=== PATIENT | male | born 1985 | race Caucasian/White ===

== ENCOUNTER 2018-05-10 21:11 | Emergency (ER) | payer OTHER ==
[2018-05-10 21:29] VITALS: BP 113/67
[2018-05-10] MEDS ORDERED: Tetan/Diph/Pertus SYR(Tdap)* 0.5 ML SYR(BOOSTRIX) use SYR IM ONE (21:48)
[2018-05-10] MEDS ORDERED: Lidocaine 2% PF * 5 ML VIAL INJ ONE (21:49)
[2018-05-10] MEDS ORDERED: Bupivacaine 0.25% SDV* 30 ML INJ ONE (21:50)
[2018-05-10] MEDS ORDERED: Bupivacaine 0.25% SDV PF* 10 ML VIAL INJ ONE (21:58)
[2018-05-11] MEDS ORDERED: Ibuprofen TAB* 600 MG PO ONE (00:06)
[2018-05-11] MEDS ORDERED: HYDROcodone/ACETAMIN 5-325 MG* 1 TAB PO ONE (00:06)
--- NOTE | 2018-05-11 00:06 | UC ---
Hand/Wrist HPI - HPI Summary HPI Summary: Patient is a 33-year-old male that presents here soon after lacerating his left index middle and ring finger with a chisel. This is right handed. His tetanus is not up-to-date. Occurred while he was woodworking. The tips of his left index and middle finger are numb. - History Of Current Complaint Chief Complaint: UCLaceration Stated Complaint: FINGERS LACERATIONS Time Seen by Provider: 05/10/18 21:37 Hx Obtained From: Patient Onset/Duration: Sudden Onset Severity Initially: Severe Severity Currently: Severe Pain Intensity: 8 Pain Scale Used: 0-10 Numeric Character Of Pain: Sharp Aggravating Factor(s): Movement Alleviating Factor(s): Compression Associated Signs And Symptoms: Positive: Numbness/Tingling Related History: Dominant Hand Right Hands: 1 - lac #1 2 - lac # 2 3 - lac #3 4 - lac #4 5 - numb 6 - numb - Allergies/Home Medications Allergies/Adverse Reactions: Allergies Allergy/AdvReac Type Severity Reaction Status Date / Time No Known Allergies Allergy Verified 05/10/18 21:29 Home Medications: Home Medications Bupropion XL* [Wellbutrin XL *] 300 mg PO DAILY 05/10/18 [History Confirmed ] Fluoxetine HCl [Prozac] 20 mg PO DAILY WITH MEAL 05/10/18 [History Confirmed ] PMH/Surg Hx/FS Hx/Imm Hx Previously Healthy: Yes - Surgical History Surgical History: None Surgery Procedure, Year, and Place: denies - Family History Known Family History: Positive: Hypertension - Social History Alcohol Use: Daily Substance Use Type: None Substance Use Comment - Amount & Last Used: coratum Smoking Status (MU): Heavy Every Day Tobacco Smoker Review of Systems Constitutional: Negative Skin: Negative Eyes: Negative ENT: Negative Respiratory: Negative Cardiovascular: Negative Gastrointestinal: Negative Genitourinary: Negative Motor: Negative Neurovascular: Negative Musculoskeletal: Negative Neurological: Negative Psychological: Negative Is Patient Immunocompromised?: No All Other Systems Reviewed And Are Negative: Yes Physical Exam Triage Information Reviewed: Yes Appearance: Well-Appearing, No Pain Distress, Well-Nourished Vital Signs: Initial Vital Signs Temp 97.9 F 05/10/18 21:24 Pulse 68 05/10/18 21:24 Resp 20 05/10/18 21:24 BP 113/67 05/10/18 21:24 Pulse Ox 100 05/10/18 21:24 Eyes: Positive: Conjunctiva Clear ENT: Positive: Hearing grossly normal. Negative: Pharyngeal erythema, Nasal congestion, Nasal drainage, Trismus Neck: Positive: Supple, Nontender Respiratory: Positive: Lungs clear, Normal breath sounds, No respiratory distress Cardiovascular: Positive: RRR, No Murmur Musculoskeletal: Positive: ROM Intact Neurological: Positive: Alert Psychological Exam: Normal Skin Exam: Other - see image Procedures - Laceration/Wound Repair 1 Location: Other - right index-see image Description: Linear Anesthesia: Digital, Lido, Marcaine Length, Depth and Shape: 1 cm long 2 mm wide 3 mm deep, linear. no tendon injury noted Betadine Prep?: Yes Irrigated w/ Saline (ccs): 60 Laceration/Wound Explored: clean Closure: Single Layer Suture Type: Nylon - 5-0 Number of Sutures: 3 Layer Closure?: No Sterile Dressing Applied?: Yes 2 Location: Other - left index finger Description: Linear Anesthesia: Digital Length, Depth and Shape: linear, 0.7 mm long, 2mm wide,3 mm deep Betadine Prep?: Yes Irrigated w/ Saline (ccs): 60 Laceration/Wound Explored: clean Closure: Single Layer Suture Type: Nylon - 5-0 Number of Sutures: 2 Layer Closure?: No Sterile Dressing Applied?: Yes 3 Location: Other - left middle finger Description: Linear Anesthesia: Digital, 2.0%, Lido, Marcaine Length, Depth and Shape: linear 2cm long, 3 mm wide 4 mm deep Betadine Prep?: Yes Irrigated w/ Saline (ccs): 60 Laceration/Wound Explored: clean Suture Type: Nylon - 5-0 Number of Sutures: 9 Layer Closure?: No Sterile Dressing Applied?: Yes 4 Location: Other - left ring finger Description: Linear Anesthesia: Digital, 2.0%, Lido, Marcaine Betadine Prep?: Yes Irrigated w/ Saline (ccs): 60 Laceration/Wound Explored: clean Closure: Single Layer Suture Type: Nylon - 5-0 Number of Sutures: 4 Layer Closure?: No Sterile Dressing Applied?: Yes Diagnostics - Radiology No standard instances Xray Interpretation: No Acute Changes Radiology Interpretation Completed By: ED Physician Hand/Wrist Course/Dx - Differential Dx/Diagnosis Provider Diagnoses: laceration repair. left index finger x 2. left middle finger. left ring finger. suspected digital nerve laceration left middle and left index finger Discharge - Sign-Out/Discharge Documenting (check all that apply): Patient Departure All imaging exams completed and their final reports reviewed: No - Discharge Plan Condition: Improved Disposition: HOME Prescriptions: Cephalexin CAP* [Keflex CAP*] 500 mg PO TID #15 cap Patient Education Materials: Finger Laceration (ED) Referrals: Clint Beverly MD [Medical Doctor] - 3 Days Additional Instructions: elevate elevate elevate leave dressings on for 24-48 hours then gently clean twice daily with soap and water dry apply thin film of ointment (I like aquaphor healing ointment) apply dressing norco one every 4 hours if needed for severe pain (3 dispensed) Opioid-containing medications can cause drowsiness and sedation. You t should not drive or operate machinery or similar activities while taking this medication. Opioids can also cause a positive drug screen, and can be habit- forming. You should follow the instructions exactly and not take any extra medication. Opioid medications should be stored in a secure manner to avoid diversion or theft. You should not drink alcohol while taking these medications advil or aleve I am concerned that you lacerated a digital nerve (left middle finger) and perhaps left index finger I suggest you see a hand specialist keflex 3x day (#15) sutures out in 7-10 days recheck jorge for concerns of infection - Billing Disposition and Condition Condition: IMPROVED Disposition: Home
[2018-05-11] MEDS ORDERED: Cephalexin CAP* 500 MG PO ONE (00:07)
--- NOTE | 2018-05-11 07:56 | RAD ---
HISTORY: injury, laceration of second through fourth fingers COMPARISONS: None VIEWS: 4 , Frontal, lateral, and oblique views of the left hand FINDINGS: BONE DENSITY: Normal. BONES: There is no displaced fracture. JOINTS: There is no arthropathy. ALIGNMENT: There is no dislocation. SOFT TISSUES: There is soft tissue irregularity consistent with the history of laceration. OTHER FINDINGS: None. IMPRESSION: NO ACUTE OSSEOUS INJURY. IF SYMPTOMS PERSIST, RECOMMEND REPEAT IMAGING. R0
--- NOTE | 2018-05-11 08:36 | UC ---
- Progress Note Progress Note: FInal xray report: no fracture of the left hand Discharge - Sign-Out/Discharge Documenting (check all that apply): Post-Discharge Follow Up All imaging exams completed and their final reports reviewed: Yes - Discharge Plan Condition: Improved Disposition: HOME Prescriptions: Cephalexin CAP* [Keflex CAP*] 500 mg PO TID #15 cap Patient Education Materials: Finger Laceration (ED) Referrals: Clint Beverly MD [Medical Doctor] - 3 Days Additional Instructions: elevate elevate elevate leave dressings on for 24-48 hours then gently clean twice daily with soap and water dry apply thin film of ointment (I like aquaphor healing ointment) apply dressing norco one every 4 hours if needed for severe pain (3 dispensed) Opioid-containing medications can cause drowsiness and sedation. You t should not drive or operate machinery or similar activities while taking this medication. Opioids can also cause a positive drug screen, and can be habit- forming. You should follow the instructions exactly and not take any extra medication. Opioid medications should be stored in a secure manner to avoid diversion or theft. You should not drink alcohol while taking these medications advil or aleve I am concerned that you lacerated a digital nerve (left middle finger) and perhaps left index finger I suggest you see a hand specialist keflex 3x day (#15) sutures out in 7-10 days recheck jorge for concerns of infection - Billing Disposition and Condition Condition: IMPROVED Disposition: Home
== END 2018-05-11 00:30 | disposition home or self-care (01) ==
LOC: UCEAST 21:11
DX: S61.211A Laceration without foreign body of left index finger without damage to nail, initial encounter (principal); S61.213A Laceration without foreign body of left middle finger without damage to nail, initial encounter; S61.215A Laceration without foreign body of left ring finger without damage to nail, initial encounter; W27.0XXA Contact with workbench tool, initial encounter; Y93.89 Activity, other specified; Y92.9 Unspecified place or not applicable; F17.210 Nicotine dependence, cigarettes, uncomplicated
CPT/HCPCS: 12002; 90471; 90715; 99203; A9270-GY; G0463; J3490

== ENCOUNTER 2018-05-20 11:24 | Day surgery (SDC) | payer OTHER ==
[~2018-05-20 11:24] MED LIST: Buffered Lidocaine 0.9% SYRIN* 5 ML/SYR SYRINGE INTRADERM ONE; Dexamethasone TAB* 4 MG PO ONE; DiMENhydriNATE IV* 50 MG/ML VIAL IV PUSH PRN; Famotidine IV* 10 MG/ML 2 ML (20 mg) IV ONE; Morphine INJ* 2 MG/ML 1 ML SYRINGE (TWO MG - NEW SYRINGE VERSION) IV PRN; Naloxone* 0.4 MG/ML 1 ML VIAL IV PRN; Ondansetron INJ* 2 MG/ML VIAL ONE; PROCHLORPERAZINE INJ 5 MG/ML 2 ML VIAL IV PRN; Scopolamine 1.5 mg* PATCH TRANSDERM PRN
[2018-05-20] MEDS ORDERED: Famotidine IV* 10 MG/ML 2 ML (20 mg) ONE (11:37)
[2018-05-20] MEDS ORDERED: Dexamethasone TAB* 4 MG ONE (11:38)
[2018-05-20] MEDS ORDERED: Ondansetron ODT TAB* 4 MG ONE (11:38)
[2018-05-20] MEDS ORDERED: Buffered Lidocaine 0.9% SYRIN* 5 ML/SYR SYRINGE ONE (11:38)
[2018-05-20] MEDS ORDERED: ceFAZolin 2 GM in NS PREMIX(*) 2 GM/100 ML BAG IVPB ONE (11:39)
[2018-05-20] MEDS ORDERED: fentaNYL* 50 MCG/ML 2 ML VIAL (100 MCG VIAL) ONE ×3 (12:02→16:33)
[2018-05-20] MEDS ORDERED: KETAMINE HCL* 50 MG/ML 10 ML VIAL ONE (12:02)
[2018-05-20] MEDS ORDERED: Midazolam* 1 MG/ML 5 ML VIAL (5 MG) ONE (12:02)
[2018-05-20] MEDS ORDERED: Bupivacaine 0.25% SDV* 30 ML ONE (13:09)
[2018-05-20] MEDS ORDERED: Ketorolac INJ* 30 MG/ML 1 ML VIAL ONE (15:19)
[2018-05-20] MEDS ORDERED: Lidocaine 2% PF * 5 ML VIAL ONE (15:19)
[2018-05-20] MEDS ORDERED: Propofol* 10 MG/ML 20 ML BTL IV PUSH ONE (15:19)
[2018-05-20] MEDS ORDERED: oxyCODONE/Acetamin 5/325 MG* TAB ONE (16:29)
[2018-05-20] MEDS: oxyCODONE/Acetamin 5/325 MG* TAB PO PRN ×2 (16:31→16:32)
[2018-05-20] MEDS: fentaNYL* 50 MCG/ML 2 ML VIAL (100 MCG VIAL) IV PRN ×3 (16:35→16:48)
[2018-05-20 16:50] VITALS: BP 112/65
--- NOTE | 2018-05-20 23:20 | OP ---
DATE OF OPERATION: 05/20/18 - [facility] [place] DATE OF : 85 SURGEON: Sheldon Lopez MD MONOTYPE SETTER: VANGIE Logan. An client account assistant was needed for the entirety of the procedure to aid in positioning of the arm and retraction. ANESTHESIOLOGIST: Dr. Palacio. ANESTHESIA: General. PRE-OP DIAGNOSES: 1. Left index finger ulnar digital nerve laceration near the DIP joint. 2. Left middle finger ulnar digital nerve laceration over the middle phalanx. POST-OP DIAGNOSES: 1. Left index finger ulnar digital nerve laceration just at the trifurcation. 2. Left index finger zone 1 partial flexor tendon laceration involving about 60 % of the tendon including the entirety of the ulnar slip of the FDP just proximal to its insertion. 3. Left middle finger ulnar digital nerve laceration. 4. Left middle finger zone 1 partial FDP tendon laceration of about 30% to 40%. OPERATIVE PROCEDURE: 1. Exploration of penetrating wounds, left index finger and middle fingers. Repair of left index finger, ulnar digital nerve with direct suturing and then AxoGuard nerve wrapping. 2. Repair of left index finger flexor digitorum profundus tendon zone 1 partial laceration. 3. Repair of left middle finger ulnar digital nerve with AxoGuard conduit. 4. Debridement of partial zone 1 left middle finger FDP tendon laceration. INDICATIONS: Bairon had a chisel wound to the left index, middle and to a lesser extent the ring fingers. The ring finger has been improving and healing nicely and it was left with just a touch of diminished sensation on the fingertip that has almost entirely improved. He is frankly numb on the ulnar aspect of the left index finger and middle fingertips. The fingers have been loosening up more recently. We talked about risks and benefits. He wanted to proceed with surgery. He understands the risks that the nerves will not heal correctly despite doing surgery as well as the risk of stiffness in the fingers. ESTIMATED BLOOD LOSS: 2 mL. COMPLICATIONS: None. FINDINGS: See above and below. DESCRIPTION OF PROCEDURE: Bairon was seen in the preoperative holding area. The correct side, site and procedure were identified. He came back to the operating room where the arm was prepped and draped in the usual fashion. A time-out was performed. The arm was exsanguinated with the Esmarch and the tourniquet inflated to 250 mmHg. The arm was positioned on the hand table with the use of a lead hand. I then extended the traumatic wound on the left middle finger proximally and distally in mid axial and then Pantera type fashion. Full thickness flap was raised off the flexor tendon sheath and the ulnar digital nerve was explored. The laceration was identified. It was 95% lacerated. There was a 30% to 40% partial laceration of the ulnar side of the FDP tendon. I then debrided this partial tendon laceration back with the [place] blade until there was a nice smooth bevelled edge. I then placed a background underneath the digital nerve and a sterile tongue depressor was placed as a backdrop. I debrided a millimeter of nerve on either side with the 11 blade. I then brought in AxoGuard 2-mm conduit and sutured it with a horizontal mattress suture in a typical fashion brining the proximal end of the nerve into the conduit first. I then trimmed my conduit to size and placed a second 9-0 nylon suture brining the distal end of the nerve into the conduit leaving a gap of about 1 to 2 mm between the ends of the nerve. At this point, everything was looking was good. I went ahead and removed the background. Everything was irrigated out. The skin was closed with 4-0 nylon suture. I then connected the in and out wounds on the left index finger tip and extended the wound distally and proximally in the mid axial line. The flaps were raised off of the flexor tendon sheath and sewn back. There was a high- grade partial tendon laceration involving the entirety of the ulnar slip of the FDP and a little bit of the radial slip. I went ahead and placed a 3-0 Ethibond 2-strand core suture through the ulnar slip of the FDP and this reapproximated the tendon very nicely. I then turned my attention to digital nerve. The laceration was right at the trifurcation. I used 3.5 x loupe magnification and the microscissors to dissect out and perform a neurolysis around nerve ends. I then placed a background as I had done on the middle finger. I was able to trim just a millimeter of nerve on either side. I then was able to direct suture repair using 9-0 nylon suture. One suture was placed radially and one suture was placed ulnarly. This apposed the nerve ends very loosely and very nicely. I then took the remainder of my 2-0 AxoGuard conduit and split it longitudinally and placed as a wrap around the nerve. It fit just perfectly. I placed a couple of 9-0 nylon sutures with spatula needle to secure the wrap. At this point, everything was looking good, so we irrigated out the wound. The background had been removed. The skin was closed with 4-0 nylon suture. The wounds are dressed and a short arm splint was placed all the way up to the finger tips with the MP joints in full flexion and the IP joints out straight. Tourniquet was deflated. The fingers pinked up immediately. He was woken up and taken to the recovery room in stable condition. [id number]/CPS #: [id number] WILIAN
[2018-05-23] MEDS ORDERED: Scopolamine PATCH Remove* 1 NOTE MISC PATCH OFF ONE (05:44)
== END 2018-05-20 17:08 | disposition home or self-care (01) ==
LOC: OR 11:24
PROVIDERS: ATTEND Orthopaedic Surgery Hand Surgery
DX: S64.491A Injury of digital nerve of left index finger, initial encounter (principal); S64.493A Injury of digital nerve of left middle finger, initial encounter; S64.495A Injury of digital nerve of left ring finger, initial encounter; F41.8 Other specified anxiety disorders; Z72.0 Tobacco use; W45.8XXA Other foreign body or object entering through skin, initial encounter; W27.0XXA Contact with workbench tool, initial encounter; Y92.9 Unspecified place or not applicable
CPT/HCPCS: A9270-GY; C1763; J0690; J1885; J2250; J2704; J3010; J8540